=== PATIENT | male | born 1930 | race Caucasian/White ===

== ENCOUNTER 2019-05-06 05:03 | Emergency (ER) | payer MEDICARE, BC ==
--- NOTE | 2019-05-06 05:42 | EDM.PDOC ---
ED HPI GENERAL MEDICAL PROBLEM - General Chief Complaint: General Stated Complaint: CONFUSION Time Seen by Provider: 05/06/19 05:15 Source of Information: Reports: Patient, Family History Limitations: Reports: No Limitations - History of Present Illness INITIAL COMMENTS - FREE TEXT/NARRATIVE: According to patient's son, patient has been having cough for past 10 days now. Cough is minimally productive and persistent. No wheezing, shortness of breath or chest discomfort. No fever or chills. Today morning he woke up to use the bath room and had an episode of incontinence of urine. No dysuria or frequency. No abdominal pain, nausea or vomiting. Duration: Week(s): (1 and half week) Location: Reports: Chest Severity: Mild Associated Symptoms: Denies: Confusion, Chest Pain, Cough, Diaphoresis, Fever/ Chills, Headaches, Nausea/Vomiting, Rash, Seizure, Shortness of Breath, Syncope , Weakness - Related Data Allergies Allergy/AdvReac Type Severity Reaction Status Date / Time No Known Allergies Allergy Verified 05/06/19 05:04 Home Meds: Home Meds Aspirin 81 mg PO DAILY 05/06/19 [History] Clopidogrel [Plavix] 75 mg PO DAILY 05/06/19 [History] Dutasteride [Avodart] 0.5 mg PO DAILY 05/06/19 [History] Losartan [Cozaar] 50 mg PO DAILY 05/06/19 [History] Multivitamin/Iron/Folic Acid [Centrum Complete Multivit] 1 each PO DAILY [History] Omeprazole Magnesium [Prilosec Otc] 20 mg PO DAILY 05/06/19 [History] atorvaSTATin [Lipitor] 80 mg PO BEDTIME 05/06/19 [History] Social & Family History - Tobacco Use Smoking Status *Q: Unknown Ever Smoked ED ROS GENERAL - Review of Systems Review Of Systems: See Below Constitutional: Denies: Fever, Chills HEENT: Denies: Rhinitis, Throat Pain Respiratory: Reports: Cough, Sputum. Denies: Shortness of Breath, Wheezing, Pleuritic Chest Pain Cardiovascular: Denies: Chest Pain, Lightheadedness GI/Abdominal: Denies: Abdominal Pain, Nausea, Vomiting : Denies: Discharge, Dysuria Musculoskeletal: Denies: Joint Pain, Joint Swelling Skin: Denies: Bruising, Pruritis, Rash ED EXAM, GENERAL - Physical Exam Exam: See Below Exam Limited By: No Limitations General Appearance: Alert, WD/WN, No Apparent Distress Eye Exam: Bilateral Eye: EOMI, PERRL Ears: Normal External Exam, Normal Canal, Hearing Grossly Normal, Normal TMs Ear Exam: Bilateral Ear: Auricle Normal, Canal Normal, TM normal Nose: Normal Inspection, Normal Mucosa, No Blood Throat/Mouth: Normal Inspection, Normal Lips, Normal Teeth, Normal Gums, Normal Oropharynx, Normal Voice, No Airway Compromise Head: Atraumatic, Normocephalic Neck: Normal Inspection, Supple, Non-Tender, Full Range of Motion Respiratory/Chest: No Accessory Muscle Use, Chest Non-Tender, Decreased Breath Sounds (right base), Rales (right base) Cardiovascular: Normal Peripheral Pulses, Regular Rate, Rhythm, No Edema, No Gallop, No JVD, No Murmur, No Rub GI/Abdominal: Normal Bowel Sounds, Soft, Non-Tender, No Organomegaly, No Distention, No Abnormal Bruit, No Mass Course - Vital Signs Text/Narrative:: 88 year old male with cough for 10 days now, which has progressively got worse. No fever or chills. His SPO2 on room air is 96%, Vitals stable. HE does have coarsse4 right lower lobe crackles on auscultation.His white count is elevated at 18K with 92% neutrophils. His chest x-ray does show right lower lobe infiltrates. Pt and his son reassured that he has right lower lobe pneumonia. He has been afebrile and also active. Does not have any other constitutional symptoms. Maintaining his oxygen saturation well on room air. He did have 2 sets of blood cultures drawn. He did receive Rocephin 1 gm IM in the emergency room and has been started on Z- ARAM. Advised steam inhalations 2-3 times daily. Robitussin DM 1 tsp 4 times daily. Rest and hydration. Followup with his primary care provider next week. Last Recorded V/S: Last Vital Signs Temp 99.2 F 05/06/19 05:08 Pulse 135 H 05/06/19 05:08 Resp 16 05/06/19 05:08 BP 150/79 H 05/06/19 05:08 Pulse Ox 96 05/06/19 05:08 - Orders/Labs/Meds Orders: Active Orders 24 hr Category Date Time Status Chest 2V [CR] Stat Exams 05/06/19 05:18 Ordered CULTURE BLOOD [BC] Stat Lab 05/06/19 05:50 Ordered UA W/MICROSCOPIC [URIN] Stat Lab 05/06/19 05:14 Ordered Labs: Laboratory Tests 05/06/19 05/06/19 Range/Units 05:14 05:19 WBC 18.1 H (4.0-11.0) K/uL RBC 4.30 L (4.50-6.50) M/uL Hgb 13.0 (13.0-18.0) g/dL Hct 37.7 L (40.0-54.0) % MCV 88 (76-96) fL MCH 30.2 (27.0-32.0) pg MCHC 34.5 (31.0-35.0) g/dL RDW 13.8 (11.0-16.0) % Plt Count 222 (150-400) K/uL MPV 9.6 (6.0-10.0) fL Neut % (Auto) 92.3 H (45.0-70.0) % Lymph % (Auto) 3.2 L (20.0-40.0) % [place] % (Auto) 4.3 (3.0-10.0) % Eos % (Auto) 0.1 L (1.0-5.0) % Baso % (Auto) 0.1 (0.0-0.5) % Neut # (Auto) 16.76 H (2.00-7.50) K/uL Lymph # (Auto) 0.58 L (1.50-4.00) K/uL [place] # (Auto) 0.78 (0.20-0.80) K/uL Eos # (Auto) 0.01 L (0.04-0.40) K/uL Baso # (Auto) 0.01 L (0.02-0.10) K/uL Urine Color Yellow Urine Appearance Clear (CLEAR) Urine pH 5.5 (5.0-8.0) Ur Specific [place] 1.015 (1.003-1.030) Urine Protein Negative (NEGATIVE) mg/dL Urine Glucose (UA) Negative (NEGATIVE) mg/dL Urine Ketones Negative (NEGATIVE) mg/dL Urine Occult Blood Trace-intact H (NEGATIVE) Urine Nitrite Negative (NEGATIVE) Urine Bilirubin Negative (NEGATIVE) Urine Urobilinogen 0.2 (0.2-1.0) E.U./dL Ur Leukocyte Esterase Negative (NEGATIVE) Meds: Medications Discontinued Medications Generic Name Dose Route Start Last Admin Trade Name Julieta PRN Reason Stop Dose Admin Ceftriaxone Sodium 1 gm 05/06/19 05:55 Rocephin IM 05/06/19 05:56 ONETIME ONE Departure - Departure Time of Disposition: 06:15 Disposition: Home, Self-Care 01 Condition: Fair Clinical Impression: Right lower lobe pneumonia - Discharge Information *PRESCRIPTION DRUG MONITORING PROGRAM REVIEWED*: Not Applicable *COPY OF PRESCRIPTION DRUG MONITORING REPORT IN PATIENT MARSHAL: Not Applicable Instructions: Ceftriaxone injection, Azithromycin tablets, Community-Acquired Pneumonia, Adult, [id number] Forms: ED Department Discharge Additional Instructions: Begin taking Robitussin DM as instructed: 1 teaspoon by mouth 4 times daily for cough. Also start taking provided Z-pack as directed: 2 tablets today, followed by 1 tablet daily for 4 days until all doses are gone. Steam inhalations or hot showers intermittently throughout day to help with cough and expectoration of sputum. Tylenol and/or ibuprofen according to package instructions every 4 hours as needed for fever and/or pain. Drink plenty of fluids and get plenty of rest. Follow up with regular provider when you return home. If there are any reportable results with blood cultures we will call you with them. Call with any questions. - Problem List & Annotations (1) Right lower lobe pneumonia SNOMED Code(s): 217397302 Code(s): J18.1 - LOBAR PNEUMONIA, UNSPECIFIED ORGANISM Status: Acute - Problem List Review Problem List Initiated/Reviewed/Updated: Yes - My Orders Last 24 Hours: My Active Orders 05/06/19 05:14 UA W/MICROSCOPIC [URIN] Stat 05/06/19 05:18 Chest 2V [CR] Stat 05/06/19 05:50 CULTURE BLOOD [BC] Stat - Assessment/Plan Last 24 Hours: My Active Orders 05/06/19 05:14 UA W/MICROSCOPIC [URIN] Stat 05/06/19 05:18 Chest 2V [CR] Stat 05/06/19 05:50 CULTURE BLOOD [BC] Stat Assessment:: Right lower lobe pneumonia Plan: 8 year old male with cough for 10 days now, which has progressively got worse. No fever or chills. His SPO2 on room air is 96%, Vitals stable. HE does have coarsse4 right lower lobe crackles on auscultation.His white count is elevated at 18K with 92% neutrophils. His chest x-ray does show right lower lobe infiltrates. Pt and his son reassured that he has right lower lobe pneumonia. He has been afebrile and also active. Does not have any other constitutional symptoms. Maintaining his oxygen saturation well on room air. He did have 2 sets of blood cultures drawn. He did receive Rocephin 1 gm IM in the emergency room and has been started on Z- ARAM. Advised steam inhalations 2-3 times daily. Robitussin DM 1 tsp 4 times daily. Rest and hydration. Followup with his primary care provider next week.
[2019-05-06] MEDS: cefTRIAXone 1 GM Vial IM ONE (06:10)
[2019-05-06] MEDS ORDERED: Azithromycin 250 MG Tab ONE (06:20)
--- NOTE | 2019-05-06 13:30 | CR ---
Date of Service: 05/06/19 Clinical Data: crackles, rhonchi PA AND LATERAL CHEST: No priors. The heart is enlarged. The aorta is calcified and ectatic. The lungs are mildly hyperexpanded, but clear. No pneumothorax. No pleural effusions. No evidence of acute intrathoracic disease. [id number] MTDD
== END 2019-05-06 06:22 | disposition home or self-care (01) ==
LOC: LB.ED 05:03
DX: J18.1 Lobar pneumonia, unspecified organism (principal); Z79.82 Long term (current) use of aspirin
CPT/HCPCS: 36415; 71046; 81001; 85025; 87040; 96372; 99283; 99284-25; A9270-GY; J0696